=== PATIENT | female | born 1950 | race Caucasian/White ===

== ENCOUNTER 2017-04-04 11:32 | Emergency (ER) | payer MEDICARE ==
[~2017-04-04 11:32] MED LIST: ACIPHEX PO; ALTACE10 MG PO; ASA5GR PO; ASAB PO; ESTRACE1 MG PO; ESTRADIOL PO; FOLIC PO; GLUCOPHXR PO; HCTZ25B PO; IMDUR30 PO; KAPIDEX60 MG PO; LEVOTHYROXIN25 MCG PO; LEXAPRO20 PO; LOP25 PO; LOP50 PO; LORTAB10 PO; LYRICA50 PO; LYRICA75 PO; MTX2.5 PO; NASONEX NAS; NORCO1 TAB PO; OXYCON40 PO; OXYCONTIN30 MG PO; OXYCONTIN60 MG PO; PLAVIX PO; PROZAC40 MG PO; SPIRIVA INH; SYN.025B PO; XOPEN0.5ML INH; ZOCOR; ZOCOR20 PO
[2017-04-04 11:55] LABS: BASOPHILS 0.1 %; BASOPHILS ABSOLUTE 0.01 10/3/uL (0.0-0.16); EOSINOPHILS 0.5 %; EOSINOPHILS ABSOLUTE 0.05 10/3/uL (0.0-0.53); ER CBC TAT 0 Hrs 07 Mins; HEMATOCRIT 32.3 % (36.0-48.0); HEMOGLOBIN 10.5 g/dL (12.0-16.0); IMMATURE GRANULOCYTES 0.1 %; IMMATURE GRANULOCYTES ABSOLUTE 0.01 10/3/uL (0.0-0.11); LYMPHOCYTES 13.1 %; LYMPHOCYTES ABSOLUTE 1.21 10/3/uL (0.67-4.30); MANUAL DIFF NO %; MEAN CORPUS HGB CONC 32.5 g/dL (32.0-36.0); MEAN CORPUSCULAR HEMOGLOB 29.4 pg (26.0-34.0); MEAN CORPUSCULAR VOLUME 90.5 fL (80-100); MEAN PLATELET VOLUME 8.8 fL (9.2-13.0); MONOCYTES 1.2 %; MONOCYTES ABSOLUTE 0.11 10/3/uL (0.21-1.20); NEUTROPHILS ABSOLUTE 7.88 10/3/uL (2.02-8.40); PLATELET COUNT 226 10/3/uL (150-400); RBC DISTRIBUTION WIDTH 16.8 % (12.0-16.0); RED CELL COUNT 3.57 10/6/uL (4.0-5.6); WHITE BLOOD CELLS 9.3 10/3/uL (4.5-10.5)
[2017-04-04 12:03] LABS: INTERNATIONAL NORMAL RATI 1.1 UNITS (-); PARTIAL THROMBO TIME 29.6 SEC (22.5-37.2); PROTIME (NOT ORD) 14.5 SEC (12.0-14.5)
[2017-04-04 12:04] LABS: ASCORBIC ACID (UR NOT ORDER) NEG (NEG); BILIRUBIN, URINE NEGATIVE (NEG); ER URINALYSIS TAT 0 Hrs 16 Mins; KETONE, URINE NEGATIVE (NEG); LEUKOCYTE ESTERASE(NOT OR MOD (NEG); NITRITE (URINE) NEG (NEG); WBC (NOT ORDERED) (RFLEX) 14 (0-5)
[2017-04-04 12:18] LABS: ALKALINE PHOSPHATASE 84 U/L (45-117); BUN (BLOOD UREA NITROGEN) 11 MG/DL (6-23); CALCIUM, SERUM 8.4 MG/DL (8.5-10.4); CHEST PAIN PROFILE TAT 0 Hrs 30 Mins; CHLORIDE, SERUM 105 MMOL/L (96-112); CO2 (CARBON DIOXIDE) 28 MMOL/L (24-34); CREATININE 1.16 MG/DL (0.55-1.02); DIRECT BILIRUBIN 0.1 MG/DL (0.0-0.4); GFR AFRICAN AMERICAN 58 ML/MIN (>=60); GFR NON AFRICAN AMERICAN 50 ML/MIN (>=60); GLUCOSE, SERUM 103 MG/DL (60-99); INDIRECT BILIRUBIN(NOT ORDER) 0.3 MG/DL (0.1-0.9); SGOT(AST) 33 U/L (5-40); SGPT(ALT) 24 U/L (5-65); SODIUM, SERUM 140 MMOL/L (135-148); TOTAL BILIRUBIN 0.4 MG/DL (0-1.2); TOTAL PROTEIN 6.7 G/DL (6.0-8.5); TROPONIN I <0.02 NG/ML (<0.05)
== END 2017-04-04 13:34 | disposition home or self-care (01) ==
LOC: ER 11:32
PROVIDERS: Emergency Medicine
DX: R07.9 Chest pain, unspecified (principal); R42 Dizziness and giddiness; N39.0 Urinary tract infection, site not specified; I25.10 Atherosclerotic heart disease of native coronary artery without angina pectoris; I73.9 Peripheral vascular disease, unspecified; I25.2 Old myocardial infarction; Z95.5 Presence of coronary angioplasty implant and graft; Z91.048 Other nonmedicinal substance allergy status; Z91.013 Allergy to seafood; Z79.891 Long term (current) use of opiate analgesic; Z79.82 Long term (current) use of aspirin; Z79.84 Long term (current) use of oral hypoglycemic drugs; Z79.899 Other long term (current) drug therapy
CPT/HCPCS: 70450; 71010; 80048; 80076; 81001; 83735; 84443; 84484; 85025; 85610; 85730; 87040; 87086; 93005; 99285

== ENCOUNTER 2017-07-09 07:07 | Emergency (ER) | payer MEDICARE, OTHER ==
[2017-07-09 09:05] LABS: BASOPHILS 0.1 %; BASOPHILS ABSOLUTE 0.01 10/3/uL (0.0-0.16); EOSINOPHILS 0.2 %; EOSINOPHILS ABSOLUTE 0.02 10/3/uL (0.0-0.53); HEMOGLOBIN 12.8 g/dL (12.0-16.0); IMMATURE GRANULOCYTES 0.6 %; IMMATURE GRANULOCYTES ABSOLUTE 0.06 10/3/uL (0.0-0.11); LYMPHOCYTES ABSOLUTE 1.88 10/3/uL (0.67-4.30); MEAN CORPUS HGB CONC 32.7 g/dL (32.0-36.0); MEAN CORPUSCULAR HEMOGLOB 28.8 pg (26.0-34.0); MEAN CORPUSCULAR VOLUME 87.9 fL (80-100); MEAN PLATELET VOLUME 9.1 fL (9.2-13.0); MONOCYTES 6.9 %; MONOCYTES ABSOLUTE 0.65 10/3/uL (0.21-1.20); NEUTROPHILS 72.2 %; NEUTROPHILS ABSOLUTE 6.79 10/3/uL (2.02-8.40); RBC DISTRIBUTION WIDTH 16.3 % (12.0-16.0); RED CELL COUNT 4.45 10/6/uL (4.0-5.6)
[2017-07-09 09:06] LABS: HEMATOCRIT 39.1 % (36.0-48.0); MANUAL DIFF NO %; PLATELET COUNT 280 10/3/uL (150-400); WHITE BLOOD CELLS 9.4 10/3/uL (4.5-10.5)
[2017-07-09 09:13] LABS: INTERNATIONAL NORMAL RATI 0.9 UNITS (-); PROTIME (NOT ORD) 12.5 SEC (12.0-14.5)
[2017-07-09 09:21] LABS: PARTIAL THROMBO TIME 22.5 SEC (22.5-37.2)
[2017-07-09 09:22] LABS: ALBUMIN 3.7 G/DL (3.5-5.0); CALCIUM, SERUM 8.9 MG/DL (8.5-10.4); CHLORIDE, SERUM 103 MMOL/L (96-112); CO2 (CARBON DIOXIDE) 30 MMOL/L (24-34); CREATININE 0.95 MG/DL (0.55-1.02); GFR AFRICAN AMERICAN 73 ML/MIN (>=60); GFR NON AFRICAN AMERICAN 63 ML/MIN (>=60); POTASSIUM, SERUM 4.1 MMOL/L (3.5-5.3); SGOT(AST) 16 U/L (5-40); SGPT(ALT) 18 U/L (5-65); SODIUM, SERUM 140 MMOL/L (135-148); TOTAL BILIRUBIN 0.4 MG/DL (0-1.2)
[2017-07-09 09:23] LABS: A/G RATIO 0.9 (0.7-1.9); ALKALINE PHOSPHATASE 142 U/L (45-117); BUN (BLOOD UREA NITROGEN) 16 MG/DL (6-23); GLOBULIN 4.3 G/DL (2.5-4.1); GLUCOSE, SERUM 137 MG/DL (60-99)
[2017-07-09] MEDS ORDERED: D 5000 PO (16:21)
== END 2017-07-09 11:17 | disposition home or self-care (01) ==
LOC: ER 07:07
PROVIDERS: Emergency Medicine
DX: S49.002A Unspecified physeal fracture of upper end of humerus, left arm, initial encounter for closed fracture (principal); I10 Essential (primary) hypertension; I25.10 Atherosclerotic heart disease of native coronary artery without angina pectoris; Z91.09 Other allergy status, other than to drugs and biological substances; Z91.013 Allergy to seafood; Z79.82 Long term (current) use of aspirin; Z79.84 Long term (current) use of oral hypoglycemic drugs; Z79.899 Other long term (current) drug therapy
CPT/HCPCS: 70450; 73060-LT; 80053; 85025; 85610; 85730; 93005; 96374; 96375; 99284; A9270-GY; J2405

== ENCOUNTER 2017-07-10 11:24 | Inpatient (IN) | payer MEDICARE, OTHER ==
[~2017-07-10] VITALS: Ht 170.2 cm; Wt 67.1 kg
--- NOTE | ~2017-07-10 | OP ---
Record Of Operation [facility] [address] [place]. [address] NAME: ERIC KAY : 54 STATUS : ADM Yusuf PAT#: [id number] AGE: 67 ADM/REG DATE : 07/10/17 MR#: [id number] REPORT SERV DATE: 07/10/17 DICTATED BY: CHACE ANDERSON DATE: 07/10/17 REPORT STATUS : Draft TRANSCRIBED BY: MODL DATE: 07/10/17 DATE OF PROCEDURE: 07/10/2017 PREOPERATIVE DIAGNOSIS: Left humerus fracture with extension of the surgical neck. POSTOPERATIVE DIAGNOSIS: Left humerus fracture with extension of the surgical neck. PROCEDURE: Treatment of left humerus fracture with internal fixation. ANESTHESIA: General. ESTIMATED BLOOD LOSS: 100 mL. IMPLANTS: [place] proximal humerus plate. SPECIMEN: None. ANTIBIOTICS: Ancef was given prior to incision. HISTORY: The patient is a 67-year-old female, who fell yesterday sustained a displaced humerus fracture with the extension of the surgical neck. She was seen in the emergency department straight to our office. In the office, we discussed the risks, benefits, surgeon operative treatment with her and she elected for surgery. We discussed the risks including nerve damage, infection, failure to heal, nonunion, malunion, failure of implants. After discussing with her, she elected proceed. OPERATIVE NOTE: Patient was seen in the preoperative area, consented, and marked. We answered all question she had to her satisfaction. She was then taken to the operative suite, placed in supine position, and underwent general anesthesia. We prepped and draped the left arm in sterile fashion and paused to perform a time-out. For current confirming the correct patient, procedure, diagnosis, and extremity. I made an anterior lateral approach to the humerus with extension the deltopectoral region. We dissected down to the musculature and identified the proximal humerus. We then identified the fracture, was able to manually reduce the fracture. After bluntly dissecting the musculature off the bone around the fracture site, I could acute in the fracture and then placed a lag screw across it to hold it and held it with a clamp. We then placed a plate laterally. We took our x-rays to confirm the correct placement of our plate. We then placed four screws proximally into the head, two screws in the shaft of the proximal humerus and four screws distally to the fracture site. We then took x-rays throughout the process to confirm the correct patient, placement of our implants and appropriate reduction. We felt once we had completed our implantation of the fracture treatment, we irrigated all the wounds, repaired the muscular layer and the subcutaneous tissue and the skin. No bleeding which shows not to place a drain. She has been placed on a sterile dressing and a sling, awakened, no complications taken PACU stable condition. Record Of Operation [address] [place]. [address] NAME: ERIC KAY : 54 STATUS : ADM Yusuf PAT#: [id number] AGE: 67 ADM/REG DATE : 07/10/17 MR#: [id number] REPORT SERV DATE: 07/10/17 DICTATED BY: CHACE ANDERSON DATE: 07/10/17 REPORT STATUS : Draft TRANSCRIBED BY: EDWIN DATE: 07/10/17 POSTOPERATIVE PLAN: She will be discharged to the PACU from the operating room, and then will be admitted to the floor for postop protocol. BRANDON/EDWIN Chace Anderson MD / [id number] CC: MD Bee Sandoval M.D.
[~2017-07-10 11:24] MED LIST changes: +D 5000 PO
[2017-07-10 12:03] LABS: HEMATOCRIT 35.8 % (36.0-48.0); HEMOGLOBIN 11.4 g/dL (12.0-16.0)
[2017-07-10 12:14] LABS: CALCIUM, SERUM 8.7 MG/DL (8.5-10.4); CHLORIDE, SERUM 106 MMOL/L (96-112); CO2 (CARBON DIOXIDE) 31 MMOL/L (24-34); CREATININE 1.21 MG/DL (0.55-1.02); GFR AFRICAN AMERICAN 54 ML/MIN (>=60); GFR NON AFRICAN AMERICAN 47 ML/MIN (>=60); GLUCOSE, SERUM 139 MG/DL (60-99); POTASSIUM, SERUM 4.8 MMOL/L (3.5-5.3); SODIUM, SERUM 141 MMOL/L (135-148)
[2017-07-10 12:15] LABS: BUN (BLOOD UREA NITROGEN) 23 MG/DL (6-23)
[2017-07-11 05:31] LABS: BUN (BLOOD UREA NITROGEN) 18 MG/DL (6-23); CALCIUM, SERUM 7.7 MG/DL (8.5-10.4); CHLORIDE, SERUM 104 MMOL/L (96-112); CO2 (CARBON DIOXIDE) 32 MMOL/L (24-34); GFR AFRICAN AMERICAN 61 ML/MIN (>=60); GFR NON AFRICAN AMERICAN 53 ML/MIN (>=60); GLUCOSE, SERUM 148 MG/DL (60-99); POTASSIUM, SERUM 4.9 MMOL/L (3.5-5.3); SODIUM, SERUM 141 MMOL/L (135-148)
[2017-07-11 05:35] LABS: HEMATOCRIT 26.5 % (36.0-48.0); HEMOGLOBIN 8.5 g/dL (12.0-16.0)
== END 2017-07-11 11:10 | disposition home or self-care (01) | DRG 493 ==
LOC: ENRESERVTM → ENRESERVDT → ENRESERV → SDC 11:24 → 3SO 18:39
PROVIDERS: Orthopaedic Surgery Sports Medicine
PROC: 0PSG04Z Reposition Left Humeral Shaft with Internal Fixation Device, Open Approach (ICD-10-PCS; principal; 2017-07-10 12:45)
DX: S42.302A Unspecified fracture of shaft of humerus, left arm, initial encounter for closed fracture (principal); D62 Acute posthemorrhagic anemia; J44.9 Chronic obstructive pulmonary disease, unspecified; W19.XXXA Unspecified fall, initial encounter; I10 Essential (primary) hypertension; I25.10 Atherosclerotic heart disease of native coronary artery without angina pectoris; Z95.5 Presence of coronary angioplasty implant and graft; G47.33 Obstructive sleep apnea (adult) (pediatric); E11.9 Type 2 diabetes mellitus without complications; F41.9 Anxiety disorder, unspecified; G89.29 Other chronic pain
CPT/HCPCS: 73060-LT; 76000; 80048; 82962; 85014; 85018; A9270-GY; C1713; J0690; J2250; J2270; J2370; J2405; J2710; J2795; J3010